=== PATIENT | female | born 1945 | race Caucasian/White ===

== ENCOUNTER 2021-03-02 20:19 | Emergency (ER) | payer MEDICARE ==
[2021-03-02] MEDS ORDERED: Cephalexin 250 MG CAP ONE (20:38)
[2021-03-02] MEDS ORDERED: Bacitracin 1 PK ONE (20:40)
[2021-03-02] MEDS ORDERED: traMADol HCl 50 MG TAB ONE (20:50)
== END 2021-03-02 20:56 | disposition home or self-care (01) ==
LOC: BURERS 20:19
DX: L03.012 Cellulitis of left finger (principal); Z79.899 Other long term (current) drug therapy
CPT/HCPCS: 10060